=== PATIENT | female | born 1980 | race Caucasian/White ===

== ENCOUNTER 2016-08-16 20:10 | Emergency (ER) | payer SELFPAY ==
[~2016-08-16] VITALS: Ht 162.6 cm; Wt 130.3 kg
[2016-08-16 20:18] VITALS: BP 157/106; PULSE 78; RESP 20; TEMP 98.7; O2SAT 100
[2016-08-16] MEDS ORDERED: LISI-515 PO ×2 (20:44→23:49)
[2016-08-16] MEDS ORDERED: AMLO5TAB2 PO ×2 (20:44→23:49)
[2016-08-16] MEDS ORDERED: ONDANSETRON HCL 4 MG/2 ML VIAL IV ONE (21:45)
--- NOTE | 2016-08-16 21:48 | PD ---
HPI Chief Complaint: Dizziness Time Seen by Provider: 20:46 Travel History International Travel<30 days: No Contact w/Intl Traveler<30days: No Traveled to known affect area: No History of Present Illness HPI The patient is a 35-year-old female that complains of vertiginous dizziness and nausea for 4 days. She denies any fever, short of breath, chest pain, diarrhea , ear pain or tinnitus or hearing loss. She smokes one half pack a day. She does not have a primary care physician or insurance. She denies any focal neurologic change. She does not have a headache at this time, she states she does have a history of migraine headaches. PFS Past Medical History Depression: Yes Hypertension: Yes Tetanus Vaccination: < 5 Years Influenza Vaccination: No ?: Unknown LMP: Ended 07/11/2016 Past Surgical History Section: Yes (X's 2) Social History Alcohol Use: No Tobacco Use: Yes (07/29 PPD) Substance Use: No Allergies-Medications (Allergen,Severity, Reaction): Coded Allergies: No Known Allergies (Unverified , 08/16/16) Reported Meds & Prescriptions Reported Meds & Active Scripts Active Reported Lisinopril 20 Mg Tab 20 Mg PO DAILY Amlodipine (Amlodipine Besylate) 5 Mg Tab 5 Mg PO DAILY Review of Systems Except as stated in HPI: all other systems reviewed are Neg Physical Exam Narrative GENERAL: The patient is alert, oriented 3 in no apparent distress at this time. Her blood pressure is 157/106. The rest the vital signs are normal. SKIN: Warm and dry. HEAD: Atraumatic. Normocephalic. EYES: Pupils equal and round. No scleral icterus. No injection or drainage. ENT: No nasal bleeding or discharge. Mucous membranes pink and moist. At the time of the initial examination the patient had no vertigo and extraocular movements were normal without nystagmus. NECK: Trachea midline. No JVD. CARDIOVASCULAR: Regular rate and rhythm. No murmur appreciated. RESPIRATORY: No accessory muscle use. Clear to auscultation. Breath sounds equal bilaterally. GASTROINTESTINAL: Abdomen soft, non-tender, nondistended. Hepatic and splenic margins not palpable. MUSCULOSKELETAL: No obvious deformities. No clubbing. No cyanosis. No edema. NEUROLOGICAL: Awake and alert. No obvious cranial nerve deficits. Motor grossly within normal limits. Normal speech. PSYCHIATRIC: Appropriate mood and affect; insight and judgment normal. Data Data Last Documented VS Vital Signs Date Time Temp Pulse Resp B/P Pulse Ox O2 Delivery O2 Flow Rate FiO2 08/16/16 20:18 98.7 78 20 157/106 100 Orders Ondansetron Inj (Zofran Inj) (08/16/16 21:45) Sodium Chlor 0.9% 1000 Ml Inj (Ns 1000 M (08/16/16 21:45) Beta Hcg (Quant/Titer) (08/16/16 21:45) Complete Blood Count With Diff (08/16/16 21:45) Basic Metabolic Panel (Bmp) (08/16/16 21:45) Urinalysis - C+S If Indicated (08/16/16 21:45) Meclizine (Antivert) (08/16/16 22:00) Potassium Chloride (Kcl) (08/16/16 23:00) Labs Laboratory Tests Test 08/16/16 08/16/16 21:30 22:15 White Blood Count 12.2 TH/MM3 Red Blood Count 4.91 MIL/MM3 Hemoglobin 13.7 GM/DL Hematocrit 42.0 % Mean Corpuscular Volume 85.5 FL Mean Corpuscular Hemoglobin 27.9 PG Mean Corpuscular Hemoglobin 32.6 % Concent Red Cell Distribution Width 13.3 % Platelet Count 514 TH/MM3 Mean Platelet Volume 8.9 FL Neutrophils (%) (Auto) 62.2 % Lymphocytes (%) (Auto) 27.1 % Monocytes (%) (Auto) 5.0 % Eosinophils (%) (Auto) 4.4 % Basophils (%) (Auto) 1.3 % Neutrophils # (Auto) 7.6 TH/MM3 Lymphocytes # (Auto) 3.3 TH/MM3 Monocytes # (Auto) 0.6 TH/MM3 Eosinophils # (Auto) 0.5 TH/MM3 Basophils # (Auto) 0.2 TH/MM3 CBC Comment DIFF FINAL Differential Comment Sodium Level 142 MEQ/L Potassium Level 3.2 MEQ/L Chloride Level 106 MEQ/L Carbon Dioxide Level 28.5 MEQ/L Anion Gap 8 MEQ/L Blood Urea Nitrogen 9 MG/DL Creatinine 0.71 MG/DL Estimat Glomerular Filtration 94 ML/MIN Rate Random Glucose 86 MG/DL Calcium Level 8.4 MG/DL Human Chorionic Gonadotropin, LESS THAN 1 Quant MIU/ML Urine Collection Type VOIDED Urine Color YELLOW Urine Turbidity CLEAR Urine pH 6.0 Urine Specific Erwin 1.017 Urine Protein NEG mg/dL Urine Glucose (UA) NEG mg/dL Urine Ketones NEG mg/dL Urine Occult Blood NEG Urine Nitrite NEG Urine Bilirubin NEG Urine Leukocyte Esterase NEG Urine RBC 0-3 /hpf Urine WBC 0-2 /hpf Urine Squamous Epithelial 6-8 /hpf Cells Urine Bacteria FEW /hpf Microscopic Urinalysis Comment CULT NOT INDICATED Urine Collection Time 2245 MDM Medical Decision Making Medical Screen Exam Complete: Yes Emergency Medical Condition: Yes Medical Record Reviewed: Yes Interpretation(s) The CBC shows a white count of 12,200 and a platelet count of 514,000 but is otherwise unremarkable. The neutrophil percentage is normal. The basic metabolic profile shows potassium 3.2 and calcium 8.4 but is otherwise normal. The beta-hCG is less than 1. The urinalysis is normal and culture is not indicated. Differential Diagnosis Electrolyte disorder, anemia, renal insufficiency, viral labyrinthitis, labyrinthine vertigo Narrative Course The patient had an episode of her vertigo and she did have horizontal nystagmus only. This cleared after about 5 minutes. Plan: The patient be given prescriptions for meclizine and Phenergan and she is given a work excuse. She states she does not drive. Diagnosis Primary Impression: Vertigo, labyrinthine Additional Instructions: As we discussed, you should not drive with these dizziness attacks. The Phenergan is one tablet every 6 hours and the meclizine is one tablet every 3 hours. Both of these are design for nausea and vertigo. Follow-up with a primary care physician next week if not better. Med/Other Pt SpecificInfo: Prescription(s) given Scripts Meclizine 25 Mg Tab25 Mg PO TID PRN (VERTIGO) #30 TAB Ref 0 Prov:Tor Arango MD 08/16/16 Promethazine (Phenergan)25 Mg Tab25 Mg PO Q6H PRN (Nausea/Vomiting) #30 TAB Ref 0 Prov:Tor Arango MD 08/16/16 Disposition: 01 DISCHARGE HOME Condition: Stable Tor Arango MD Aug 16, 2016 21:48
[2016-08-16] MEDS ORDERED: MECLIZINE HCL 25 MG TAB PO ONE (22:00)
[2016-08-16 22:13] LABS: AUTOMATED NEUTROPHIL # 7.6 TH/MM3 (1.8-7.7); BASOPHIL # 0.2 TH/MM3 (0-0.2); BASOPHIL % 1.3 % (0.0-2.0); EOSINOPHIL # 0.5 TH/MM3 (0-0.4); EOSINOPHIL % 4.4 % (0.0-4.0); HEMO FLAGS DIFF FINAL; LYMPH % 27.1 % (9.0-44.0); LYMPHOCYTE # 3.3 TH/MM3 (1.0-4.8); MEAN CELL VOLUME 85.5 FL (80.0-100.0); MEAN CORPUSCULAR HEMOGLOBIN 27.9 PG (27.0-34.0); MEAN CORPUSCULAR HGB CONC 32.6 % (32.0-36.0); NEUT % 62.2 % (16.0-70.0); PLATELET COUNT 514 TH/MM3 (150-450); RED BLOOD COUNT 4.91 MIL/MM3 (4.00-5.30); RED CELL DISTRIBUTION WIDTH 13.3 % (11.6-17.2); WHITE BLOOD COUNT 12.2 TH/MM3 (4.0-11.0)
[2016-08-16 22:15] LABS: CHLORIDE 106 MEQ/L (98-107); POTASSIUM 3.2 MEQ/L (3.5-5.1); SODIUM (NA) 142 MEQ/L (136-145)
[2016-08-16] MEDS: SODIUM CHLOR 0.9% 1000 ML INJ 1,000 ML IV SCH ×2 (22:15→22:25)
[2016-08-16 22:18] LABS: ANION GAP 8 MEQ/L (5-15); BICARBONATE 28.5 MEQ/L (21.0-32.0); BLOOD UREA NITROGEN 9 MG/DL (7-18)
[2016-08-16 22:22] LABS: GLOMERULAR FILTRATION RATE 94 ML/MIN (>89)
[2016-08-16 22:26] LABS: BLOOD, URINE NEG (NEG); GLUCOSE,URINE NEG (NEG); KETONE, URINE NEG (NEG); NITRITE,URINE NEG (NEG)
[2016-08-16 22:26] LABS: BETA HCG QUANT LESS THAN 1 MIU/ML (0-5)
[2016-08-16 22:30] LABS: METHOD OF COLLECTION VOIDED; URINE COLOR YELLOW (YELLW/STRAW)
[2016-08-16 22:32] LABS: BACTERIA, URINE FEW /hpf; COMMENT (UR) CULT NOT INDICATED; CULTURE IF INDICATED CULT NOT INDICATED; RBC, URINE 0-3 /hpf (0-3); WBC, URINE 0-2 /hpf (0-5)
[2016-08-16] MEDS ORDERED: POTASSIUM CHLORIDE 20 MEQ CONTROLLED RELEASE TAB PO ONE (23:00)
[2016-08-16] MEDS ORDERED: PROM25TA5 PO (23:02)
[2016-08-16] MEDS ORDERED: MECL-62 PO (23:02)
[2016-08-17 00:21] VITALS: BP 142/97; TEMP 97.5
== END 2016-08-17 00:47 | disposition home or self-care (01) ==
LOC: PHED 20:10
DX: R42 Dizziness and giddiness (principal); H83.8X9 Other specified diseases of inner ear, unspecified ear; I10 Essential (primary) hypertension; F17.210 Nicotine dependence, cigarettes, uncomplicated
CPT/HCPCS: 80048; 81001; 84702; 85025; 96361; 96374; 99284; J2405; J7030